=== PATIENT | female | born 1980 | race Caucasian/White ===

== ENCOUNTER 2022-03-21 21:19 | Emergency (ER) | payer OTHER ==
[2022-03-21] MEDS ORDERED: Amoxicillin/Clavulanate K 875-125 MG Tab PO ONE (22:05)
[2022-03-21] MEDS ORDERED: Rabies Immune Globulin PF 150 Units/ML 10 ML SDV IM STA (22:59)
[2022-03-21] MEDS ORDERED: Rabies Vaccine, Human Diploid Cell PF 2.5 Unit SDV IM ONE (22:59)
[2022-03-21] MEDS ORDERED: Lidocaine/Epineph/Tetracaine 3 ML Syringe TOP ONE (23:16)
== END 2022-03-22 00:04 | disposition home or self-care (01) ==
LOC: MW.ED 21:19
DX: S81.852A Open bite, left lower leg, initial encounter (principal); Z23 Encounter for immunization; W55.01XA Bitten by cat, initial encounter
CPT/HCPCS: 90375; 90471; 90675; 96372; 99283; A9270